=== PATIENT | male | born 1950 | race Caucasian/White ===

== ENCOUNTER → 2016-06-28 | Outpatient (CLI) | payer OTHER | LOC: MMPC 09:00 | DX: J06.9 Acute upper respiratory infection, unspecified (principal); J20.9 Acute bronchitis, unspecified | CPT/HCPCS: 99213; G0463 ==

== ENCOUNTER → 2016-08-15 | Outpatient (CLI) | payer OTHER ==
[2016-08-15 14:44] LABS: HEMOGLOBIN A1C 7.37 % (4.2-6.0)
[2016-08-15 15:05] LABS: CREATININE, URINE 113.4 MG/DL (15-500)
== END ==
LOC: LAB 08:53
PROVIDERS: ATTEND Internal Medicine
DX: E11.9 Type 2 diabetes mellitus without complications (principal)
CPT/HCPCS: 82043; 83036

== ENCOUNTER → 2016-08-23 | Outpatient (CLI) | payer OTHER | LOC: MMPC 11:11 | PROVIDERS: ATTEND Internal Medicine | DX: E11.9 Type 2 diabetes mellitus without complications (principal); G25.81 Restless legs syndrome; E78.5 Hyperlipidemia, unspecified ==